=== PATIENT | female | born 1955 | race Caucasian/White ===

== ENCOUNTER 2023-10-16 05:29 | Emergency (ER) | payer MEDICARE, SELFPAY ==
[2023-10-16 05:34] VITALS: BP 150/90
[2023-10-16 06:07] LABS: COVID-19 Antigen Negative (Negative)
--- NOTE | 2023-10-16 06:59 | ED.GENMED ---
History of Present Illness
General
Chief Complaint: Cold/Flu/URI Symptoms
Source: patient
Time Seen by Provider: 10/16/23 06:47
Travel History
Have you had any contact with someone who has COVID-19?: No
Do you have any symptoms of coronavirus? Fever > 100 degrees, chills, cough, shortness of breath, sore throat, loss of taste or smell, muscle aches, or headache?: Yes
Symptoms:: cough, congestion
History of Present Illness
History of Present Illness:
68-year-old female presents to the emergency room complaining of a cough, sore throat, congestion. Symptoms began 2 or 3 days ago. Patient is particularly bothered by the cough which is quite persistent. Patient does have a 5-month-old grandson
who she watches and has had a cough recently. Patient does not feel short of breath per se. She has not had a fever.
Past History
Past History
ED Past Medical History: HTN
ED Past Surgical History: Orthopedic (Foot surgery)
Social History
Tobacco: Smoker
Alcohol: Occasional
Drug: None
Personal:
Living: with family
Employment: Employed
Family History
Family History: Negative Early CAD
Phy Exam
Physical Exam
Physical Exam:
General: Awake, Alert, Oriented X3. No acute distress with occasional coughing episodes
Vitals: unremarkable
Head: Atraumatic
Eyes: Pupils equal, EOMI
Throat: Airway intact, no exudates
Neck: Trachea midline
Lungs: Clear and equal b/l
Heart: Regular rate, no murmurs
Abd: Soft, Nontender, No pulsatile mass
Neuro: Nonfocal
Skin: Warm, dry, no rash
Extremities: pulses equal b/l, no edema
Course
Orders/Labs/Results
Orders:
Orders
10/16/23 05:43
COVID-19 Antigen Urgent
Source: Nasal Swab
10/16/23 06:34
Influenza A+B Rapid Molecular Routine
[facility] Source: [facility]
Specimen Description:
Comment: RECOLLECT
10/16/23 06:54
CR Chest - 2 Views Urgent
Comment:
Reason For Exam: cough
10/16/23 06:58
Albuterol Nebs [Ventolin Nebules] 2.5 mg INH R NOW STA
10/16/23 08:14
Azithromycin [Zithromax] 500 mg PO NOW STA
Vital Signs
Initial and Last Documented VS:
Initial Vital Signs
Temp Pulse Resp BP Pulse Ox
98.4 F 99 24 150/90 99
10/16/23 05:34 10/16/23 05:34 10/16/23 05:34 10/16/23 05:34 10/16/23 05:34
Last Documented Vital Signs
Temp Pulse Resp BP Pulse Ox
98.4 F 89 17 132/62 96
10/16/23 05:34 10/16/23 08:21 10/16/23 08:21 10/16/23 08:21 10/16/23 08:21
MDM/Problems Addressed
Differential Diagnosis Includes:
Viral URI, bronchitis, pneumonia
MDM/Problems Addressed:
Chest x-ray shows no acute abnormality. Overall presentation consistent with a viral URI or bronchitis but given her age, exposure to 5-month-old cover with Zithromax.
*Radiology
Radiology exam reviewed: preliminary read by ED provider (Personally viewed the patient's chest x-ray and see no acute disease)
*Pulse Oximetry
Patient hypoxic: no
*Critical Care Note
Total Time (30-74mins, 75-104mins- exclusive of procedures): Not Applicable
ED Attending Note
-
Portions of this chart may have been created with voice recognition software.� Occasional wrong word or��sound alike� substitutions may have occurred due to the inherent limitations of voice recognition software.
Discharge Plan
Departure
Patient Disposition: Home (Routine Discharge)
Date of Disposition: 10/16/23
Time of Disposition: 08:11
Patient with high blood pressure during this ER visit?: Yes
Condition: Good
Discharge Problem:
Acute bronchitis
Instructions: Acute Bronchitis, Adult (DC), BLOOD PRESSURE
Prescriptions:
New
azithromycin [Zithromax Z-Gm] 250 mg tablet
250 mg PO DAILY 4 Days Qty: 4 0RF
benzonatate 100 mg capsule
100 mg PO TID PRN (Reason: Cough) Qty: 20 0RF
No Action
fluticasone propionate [Flonase] 16 GM spray,suspension
16 gm NS DAILY
lisinopril 10 mg Tablet
10 mg PO DAILY
Referrals:
Sandrine Patino MD [Family Provider] -
Interventions
Interventions:
*Risk Screen - Suicide Last Done: 10/16/23 05:34
*General Assessment Last Done: 10/16/23 05:34
*Neglect/Abuse Screening Last Done: 10/16/23 05:34
ED- Fall Risk Assessment Last Done: 10/16/23 05:34
*ED COVID-19 Vaccine History Last Done: 10/16/23 05:34
*Nursing Disposition Last Done: 10/16/23 08:47
ED- Pulmonary Assessment Last Done: 10/16/23 06:40
Discharge Date and Time
Discharge Date/Time: 10/16/23 08:47
Print Language: FRENCH
[2023-10-16] MEDS: VENTOLIN NEBULES 2.5 MG INH (07:14)
[2023-10-16 08:21] VITALS: BP 132/62
[2023-10-16] MEDS: ZITHROMAX 500 MG PO (08:23)
== END 2023-10-16 08:47 | disposition home or self-care (01) ==
LOC: EMR 05:29
PROVIDERS: Emergency Medicine; EMERGENCY PHYSICIAN Emergency Medicine; FAMILY PHYSICIAN Internal Medicine
DX: J20.9 Acute bronchitis, unspecified (principal); Z11.52 Encounter for screening for COVID-19; I10 Essential (primary) hypertension
CPT/HCPCS: 99283; 94640; 71046; 87502; 87811

== ENCOUNTER → 2023-12-16 06:39 | Day surgery (SDC) | payer MEDICARE, SELFPAY | LOC: GI 06:39 | PROVIDERS: ATTENDING PHYSICIAN Internal Medicine Gastroenterology | DX: K29.50 Unspecified chronic gastritis without bleeding (principal); K31.89 Other diseases of stomach and duodenum; K44.9 Diaphragmatic hernia without obstruction or gangrene; R12 Heartburn; R13.10 Dysphagia, unspecified | CPT/HCPCS: 43239; 88305; 88342 ==

== ENCOUNTER → 2024-04-24 16:29 | Outpatient (REF) | payer MEDICARE, SELFPAY | LOC: WDC 16:29 | PROVIDERS: ATTENDING PHYSICIAN Nurse Practitioner; FAMILY PHYSICIAN Nurse Practitioner Adult Health | DX: Z12.31 Encounter for screening mammogram for malignant neoplasm of breast (principal) | CPT/HCPCS: 77063; 77067 ==

== ENCOUNTER → 2024-08-09 10:04 | Outpatient (REF) | payer MEDICARE, SELFPAY | LOC: HWEVLT 10:04 | PROVIDERS: ATTENDING PHYSICIAN Radiology Vascular & Interventional Radiology | DX: I83.893 Varicose veins of bilateral lower extremities with other complications (principal) | CPT/HCPCS: 93970 ==

== ENCOUNTER 2024-11-05 13:38 | Emergency (ER) | payer MEDICARE, SELFPAY ==
[2024-11-05 13:40] VITALS: BP 174/91
[2024-11-05 14:13] LABS: % Basophils 0.9 % (0-2); % Eosinophils 3.1 % (0-6); % Immature Granulocytes 1.7 % (0-0.5); % Lymphocytes 22.7 % (20.5-51.1); % Neutrophils 65.6 % (42.2-75.2); Absolute Basophils 0.1 10^3/uL (0-0.2); Absolute Eosinophils 0.3 10^3/uL (0-0.7); Absolute Immature Granulocytes 0.2 10^3/uL (0-0.05); Absolute Monocytes 0.5 10^3/uL (0.1-0.6); Absolute Neutrophils 5.8 10^3/uL (1.4-6.5); Hemoglobin 13.5 g/dL (12.0-16.0); Mean Corp Hgb Conc. 33.8 g/dL (33.0-37.0); Mean Corpuscular Hgb 30.1 pg (27.0-31.0); Mean Corpuscular Volume 89.1 fL (81.0-99.0); Mean Platelet Volume 11.2 fL (7.4-10.4); Nucleated Red Blood Cells % 0 %; Platelet Count 212 10^3/uL (130-400); Red Blood Cell Count 4.49 10^6/uL (4.20-5.40); Red Cell Dist. Width 13.2 % (11.5-14.5); White Blood Cell Count 8.8 10^3/uL (4.8-10.8)
[2024-11-05 14:26] LABS: ALT (SGPT) 62 U/L (0-35); AST (SGOT) 42 U/L (14-36); Alkaline Phosphatase 62 U/L (38-126); Blood Urea Nitrogen 18 mg/dl (7-17); Calcium 9.2 mg/dl (8.4-10.2); Carbon Dioxide 21 mmol/L (22-30); Glucose 129 mg/dl (70-99); Potassium 4.5 mmol/L (3.5-5.1); Sodium 144 mmol/L (135-145); Total Bilirubin 0.4 mg/dl (0.2-1.3); Total Protein 7.7 g/dl (6.3-8.2); eGFR > 60.00
[2024-11-05 14:35] LABS: Chloride 112 mmol/L (98-107)
[2024-11-05 14:38] LABS: Troponin I < 0.012 ng/ml
--- NOTE | 2024-11-05 17:43 | ED.GENMED ---
History of Present Illness
<Reynaldo Urias PA-C - Last Filed: 11/06/24 14:30>
General
Chief Complaint: Numbness
Source: patient
Exam Limitations: none
Time Seen by Provider: 11/05/24 17:25
History of Present Illness
History of Present Illness:
69-year-old female presents with the onset of left hand numbness and tingling as well as blurry vision out of both eyes. This blurry vision started somewhat yesterday with a headache. The headache was mild. She denies any weakness to the arms or
legs. No chest pain or shortness of breath. No fevers. No other complaints.
Past History
<Reynaldo Urias PA-C - Last Filed: 11/06/24 14:30>
Past History
ED Past Medical History: HTN
ED Past Surgical History: Orthopedic (Foot surgery)
Social History
Tobacco: Smoker
Alcohol: Occasional
Drug: None
Personal:
Living: with family
Employment: Employed
Family History
Family History: Negative Early CAD
Phy Exam
<Reynaldo Urias PA-C - Last Filed: 11/06/24 14:30>
Physical Exam
Physical Exam:
General: Well-appearing female no acute respiratory distress
HEENT: Normocephalic atraumatic pupils equal round reactive to light extract motions are intact
Heart: Regular rate and rhythm holosystolic murmur noted lungs: Clear no wheeze
Neurologic exam: Alert and oriented no facial asymmetry no slurred speech no drift on exam good strength and sensation to the upper and lower extremities. No dysarthria or aphasia.
Skin is warm no rash
Course
<BARRETT Cottrell Last Filed: 11/06/24 14:30>
Orders/Labs/Results
Orders:
Orders
11/05/24 13:43
Electrocardiogram (*1) Urgent
Reason for Study: Hypertension, Benign
EKG- Treatment ONCE
11/05/24 13:[address] [CT Head W/o Iv Contrast] Urgent
Comment:
Reason For Exam: blurred vision, hand tingling
11/05/24 13:55
Complete Blood Count/With Diff Urgent
Comprehensive Metabolic Panel Urgent
Troponin I Urgent
11/05/24 17:41
Visual Acuity- Treatment ONCE
Abnormal Lab Results
11/05/24
13:55
MPV 11.2 H fL
(7.4-10.4)
Abs Immat Gran (auto) 0.2 H 10^3/uL
(0-0.05)
Immature Gran % 1.7 H %
(0-0.5)
Chloride 112 H mmol/L
(98-107)
Carbon Dioxide 21 L mmol/L
(22-30)
BUN 18 H mg/dl
(7-17)
Glucose 129 H mg/dl
(70-99)
AST 42 H U/L
(14-36)
ALT 62 H U/L
(0-35)
11/05/24 13:55
11/05/24 13:55
Vital Signs
Initial and Last Documented VS:
Initial Vital Signs
Temp Pulse Resp BP Pulse Ox
98.5 F 100 16 174/91 97
11/05/24 13:40 11/05/24 13:40 11/05/24 13:40 11/05/24 13:40 11/05/24 13:40
Last Documented Vital Signs
Temp Pulse Resp BP Pulse Ox
98.5 F 88 16 168/77 96
11/05/24 13:40 11/05/24 18:00 11/05/24 13:40 11/05/24 21:00 11/05/24 20:33
<Mami Lynn MD - Last Filed: 11/05/24 21:31>
Orders/Labs/Results
Orders:
Orders
11/05/24 13:43
Electrocardiogram (*1) Urgent
Reason for Study: Hypertension, Benign
EKG- Treatment ONCE
11/05/24 13:[address] [CT Head W/o Iv Contrast] Urgent
Comment:
Reason For Exam: blurred vision, hand tingling
11/05/24 13:55
Complete Blood Count/With Diff Urgent
Comprehensive Metabolic Panel Urgent
Troponin I Urgent
11/05/24 17:41
Visual Acuity- Treatment ONCE
Abnormal Lab Results
11/05/24
13:55
MPV 11.2 H fL
(7.4-10.4)
Abs Immat Gran (auto) 0.2 H 10^3/uL
(0-0.05)
Immature Gran % 1.7 H %
(0-0.5)
Chloride 112 H mmol/L
(98-107)
Carbon Dioxide 21 L mmol/L
(22-30)
BUN 18 H mg/dl
(7-17)
Glucose 129 H mg/dl
(70-99)
AST 42 H U/L
(14-36)
ALT 62 H U/L
(0-35)
11/05/24 13:55
11/05/24 13:55
Vital Signs
Initial and Last Documented VS:
Initial Vital Signs
Temp Pulse Resp BP Pulse Ox
98.5 F 100 16 174/91 97
11/05/24 13:40 11/05/24 13:40 11/05/24 13:40 11/05/24 13:40 11/05/24 13:40
Last Documented Vital Signs
Temp Pulse Resp BP Pulse Ox
98.5 F 88 16 168/77 96
11/05/24 13:40 11/05/24 18:00 11/05/24 13:40 11/05/24 21:00 11/05/24 20:33
<Reynaldo Urias PA-C - Last Filed: 11/06/24 14:30>
MDM/Problems Addressed
Differential Diagnosis Includes:
Patient with blurry vision and left hand tingling. Objectively no findings of neurologic deficit. Consider migraine versus CVA versus TIA. CT of the head was negative. Labs reviewed without
<Reynaldo Urias PA-C - Last Filed: 11/06/24 14:30>
*Critical Care Note
Total Time (30-74mins, 75-104mins- exclusive of procedures): Not Applicable
<Mami Lynn MD - Last Filed: 11/05/24 21:31>
Update Note
Update Note:
Dr. Goode went to evaluate patient. Feels that patient's symptoms are more likely to due to migraine headache rather than stroke. Patient encouraged to follow-up with her primary care doctor within 1 week for consideration of MRI brain. Patient told
to return immediately with any vision changes, weakness, numbness, difficulty speaking or any other concerns. Patient tells me she feels well. Her symptoms are gone and she like to go home.
ED Attending Note
<Reynaldo Urias PA-C - Last Filed: 11/06/24 14:30>
-
Portions of this chart may have been created with voice recognition software.� Occasional wrong word or��sound alike� substitutions may have occurred due to the inherent limitations of voice recognition software.
Discharge Plan
Departure
Patient Disposition: Home (Routine Discharge)
Date of Disposition: 11/05/24
Time of Disposition: 21:27
Patient with high blood pressure during this ER visit?: Yes
Condition: Good
Covid-19: Not Applicable
Discharge Problem:
Arm paresthesia, left
Instructions: Paresthesia (DC), BLOOD PRESSURE
Prescriptions:
No Action
fluticasone propionate [Flonase] 16 GM spray,suspension
16 gm NS DAILY
lisinopril 10 mg Tablet
10 mg PO DAILY
azithromycin [Zithromax Z-Gm] 250 mg tablet
250 mg PO DAILY 4 Days Qty: 4 0RF
benzonatate 100 mg capsule
100 mg PO TID PRN (Reason: Cough) Qty: 20 0RF
Referrals:
UNKNOWN - PT DOES,NOT KNOW [Family Provider]
Activity Restrictions/Additional Instructions:
Follow-up with your primary care doctor within 1 week. If your symptoms recur, it is recommended by neurology that you get an MRI of your brain
Interventions
Interventions:
*Risk Screen - Suicide Last Done: 11/05/24 13:42
*General Assessment Last Done: 11/05/24 18:38
*Neglect/Abuse Screening Last Done: 11/05/24 13:42
*ED- Fall Risk Assessment Last Done: 11/05/24 18:38
*ED COVID-19 Vaccine History Last Done: 11/05/24 18:38
*Nursing Disposition Last Done: 11/05/24 21:25
ED- Neurological Assessment Last Done: 11/05/24 18:40
Discharge Date and Time
Discharge Date/Time: 11/05/24 21:25
Print Language: TURKISH
[2024-11-05 18:00] VITALS: BP 165/74
[2024-11-05 18:40] VITALS: BMI 26.0
[2024-11-05 19:00] VITALS: BP 156/79
[2024-11-05 20:00] VITALS: BP 161/79
--- NOTE | 2024-11-05 20:49 | CON.NEURO ---
Neuro Assessment/Plan
Assessment
not clear that yesterday and today's events are related
most likely migraine yesterday though mild; given her age outpatient brain MRI if recurring
left hand tingling, exam with small patch of numbness dorsal wrist, suspecting peripheral, outpatient EMG if persisting/worsening
offered gabapentin, which she declined
Plan
ok to discharge
Consultation
Order
Date of Consultation: 11/05/24
Requesting Provider:
Reason for Consult:
Subjective/Objective
Subjective Data
Date of Service: November 05, 2024
69 year old right handed woman. yesterday while driving sudden onset headache/blurry vision. now resolved. Headache was mild, bifrontal, throbbing. blurry vision she did not try closing/checking one eye at a time. denies vision loss, double vision,
heat wave or distortion. not a habitual headache sufferer
today with left hand tingling, numbness. affects palm, all 5 digits. distant history of left thumb tendon laceration, numbness which is now resolved.
Objective Data
Vital Signs
Temp Pulse Resp BP Pulse Ox
36.9 C 88 16 165/74 95
11/05/24 13:40 11/05/24 18:00 11/05/24 13:40 11/05/24 18:00 11/05/24 18:00
Lab Results
11/05/24 13:55
11/05/24 13:55
Sodium 144 mmol/L (135-145) 11/05/24 13:55
Potassium 4.5 mmol/L (3.5-5.1) 11/05/24 13:55
BUN 18 mg/dl (7-17) H 11/05/24 13:55
Glucose 129 mg/dl (70-99) H 11/05/24 13:55
Calcium 9.2 mg/dl (8.4-10.2) 11/05/24 13:55
Patient Allergies
No Known Allergies Allergy (Verified 10/16/23 05:34)
Physical Exam
-
AAOx3, speech clear, language intact
VFF, EOMI, face symmetric, facial sensation intact to pin
extensive pinprick exam showing small patch of numbness left dorsal wrist/distal forearm with intact sensation hand median/ulnar/radial distribution
full strength except left APB 4/5 (h/o thumb laceration)
DTR normal/symmetric
Medications
-
Home Medications
�Medication �Instructions �Recorded
fluticasone propionate 50 16 gm NS DAILY 02/18/09
mcg/actuation nasal
spray,suspension (Flonase)
azithromycin 250 mg tablet 250 mg PO DAILY 4 days #4 tabs 10/16/23
(Zithromax Z-Gm)
benzonatate 100 mg capsule 100 mg PO TID PRN Cough #20 caps 10/16/23
lisinopril 10 mg tablet 10 mg PO DAILY 10/16/23
[2024-11-05 21:00] VITALS: BP 168/77
== END 2024-11-05 21:25 | disposition home or self-care (01) ==
LOC: EMR 13:38
PROVIDERS: Emergency Medicine; EMERGENCY PHYSICIAN Emergency Medicine
DX: R20.2 Paresthesia of skin (principal); R20.0 Anesthesia of skin; H53.8 Other visual disturbances; R51.9 Headache, unspecified; I10 Essential (primary) hypertension; F17.200 Nicotine dependence, unspecified, uncomplicated
CPT/HCPCS: 99284; 70450; 80053; 84484; 85025; 93005

== ENCOUNTER → 2025-04-30 09:57 | Outpatient (REF) | payer MEDICARE, SELFPAY | LOC: HWRAD 09:57 | PROVIDERS: ATTENDING PHYSICIAN Nurse Practitioner; FAMILY PHYSICIAN Internal Medicine | DX: K58.9 Irritable bowel syndrome, unspecified (principal) | CPT/HCPCS: 76700 ==